=== PATIENT | male | born 1990 | race African-American/Black ===

== ENCOUNTER 2018-10-14 11:58 | Emergency (ER) | payer MEDICAID ==
[~2018-10-14] VITALS: Ht 188 cm; Wt 84.0 kg
[2018-10-14 12:17] VITALS: BP 112/58
[2018-10-14 14:16] LABS: CLARITY URINE CLOUDY (CLEAR); COLOR URINE YELLOW (YELLOW); KETONES URINE NEGATIVE (NEGATIVE); LEUKOCYTE ESTERASE URINE 1+ (NEGATIVE); NITRITE URINE NEGATIVE (NEGATIVE); OCCULT BLOOD URINE NEGATIVE (NEGATIVE); PROTEIN URINE NEGATIVE (NEGATIVE); SPECIFIC GRAVITY URINE 1.025 (1.005-1.030)
[2018-10-14] MEDS ORDERED: LIDOCAINE HCL 1% 20ML VIAL (Pyxis) INJ INFIL ONE (15:30)
[2018-10-14] MEDS ORDERED: CEFTRIAXONE SODIUM 250 MG/VIAL IM ONE (15:30)
[2018-10-14] MEDS ORDERED: AZITHROMYCIN 500 MG TABLET PO ONE (15:30)
[2018-10-17 04:11] LABS: CHLAMYDIA TRACHOMATIS NAA Positive (Negative); NEISSERIA GONORRHOEAE NAA Negative (Negative)
== END 2018-10-14 16:21 | disposition home or self-care (01) ==
LOC: ER 11:58
DX: Z20.2 Contact with and (suspected) exposure to infections with a predominantly sexual mode of transmission (principal); N39.0 Urinary tract infection, site not specified
CPT/HCPCS: 81003; 87086; 87491; 87591; 96372; 99283; J0696; J3490